=== PATIENT | male | born 1980 | race Hispanic/Latino ===

== ENCOUNTER 2016-11-23 13:29 | Outpatient (CLI) | payer OTHER ==
[2016-11-23 14:23] LABS: Blood Urea Nitrogen 17 mg/dL (9-20)
--- NOTE | 2016-11-23 15:27 | Magnetic Resonance Report ---
MRI LUMBAR SPINE WITH AND WITHOUT CONTRAST HISTORY: Low back pain. TECHNIQUE: axial T1, T2. sagittal T1,T2, STIR. Post contrast T1 fat-sat imaging in axial and sagittal planes. COMPARISON: none. FINDINGS: The conus terminates at L1-2. No signal abnormality or mass. The cauda equina is within normal limits. No central canal stenosis. Normal height and alignment of the lumbar vertebra. The facet joints are in appropriate relationship. Normal bone marrow signal. No acute fracture or suspicious bone lesion. The paraspinal soft tissues are unremarkable. L1-2: No abnormality. L2-3: No abnormality. L3-4: No abnormality. L4-5: There is mild disc narrowing and desiccation. A focal midline annular tear and midline disc protrusion are identified displace the anterior thecal sac. No mass effect on nerve roots or central canal stenosis. Mild facet arthropathy. No significant neural foraminal narrowing. L5-S1: There is mild disc desiccation and narrowing. A focal midline annular tear and small disc protrusion are identified which displaces the anterior thecal sac. No central canal stenosis or neural foraminal narrowing. The facet joints are unremarkable. IMPRESSION: Focal midline annular tears and small disc protrusions at L4-5 and L5-S1 as outlined above. No central canal stenosis or mass effect on nerve roots is appreciated.
== END 2016-11-23 13:30 | disposition home or self-care (01) ==
LOC: MRI 13:29
PROVIDERS: ATTEND Internal Medicine
DX: M51.27 Other intervertebral disc displacement, lumbosacral region (principal); M12.88 Other specific arthropathies, not elsewhere classified, other specified site; I10 Essential (primary) hypertension; F31.9 Bipolar disorder, unspecified
CPT/HCPCS: 36415; 72158; 82565; 84520; A9577